=== PATIENT | female | born 1990 | race African-American/Black ===

== ENCOUNTER 2020-08-04 11:33 | Emergency (ER) | payer SELFPAY ==
[~2020-08-04] VITALS: Ht 167.6 cm; Wt 54.9 kg
[~2020-08-04 11:33] MED LIST: BACTRIM DS TAB1 EAC1 ORAL; IBUPROFEN600 MG ORAL; NKM
[2020-08-04 11:41] VITALS: BP 114/72
--- NOTE | 2020-08-04 11:43 | NUR ---
ED Nurse Note: Pt ambulated to ed c/o right middle finger swelling s/p getting her nails done. Pt is AOx4, calm and cooperative, VSS, bleeding controlled.
[2020-08-04] MEDS ORDERED: Bupivacaine 0.5% Inj 30 ml vial INJ ONE (12:00)
--- NOTE | 2020-08-04 12:14 | NUR ---
ED Nurse Note: Dr. Frey at pt bedside performing I&D, pt tolerated well
[2020-08-04] MEDS ORDERED: ZITHROMAX250 MG ORAL (12:23)
[2020-08-04] MEDS ORDERED: Bacitracin Oint UD TOPIC ONE ×2 (12:34→13:00)
[2020-08-04 12:54] VITALS: BP 115/76
--- NOTE | 2020-08-04 12:54 | NUR ---
ER DISCHARGE NOTE: Patient is cleared to be discharged per ERMD, pt is aox4, on room air, with stable vital signs. pt was given dc and prescription instructions, pt was able to verbalize understanding, pt id band removed. pt is able to ambulate with steady gait. pt took all belongings.
== END 2020-08-04 12:54 | disposition home or self-care (01) ==
LOC: EMR 12:07
DX: R22.31 Localized swelling, mass and lump, right upper limb (principal)
CPT/HCPCS: 99283; J3490